=== PATIENT | male | born 1970 | race Caucasian/White ===

== ENCOUNTER 2016-11-10 18:55 | Emergency (ER) ==
[2016-11-10 19:27] VITALS: BP 147/92
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
--- NOTE | 2016-11-11 09:37 | Diag Imaging Result Document ---
PROCEDURE NAME: ANKLE COMPLETE RIGHT - 11/10/2016 PLAIN RADIOGRAPH OF THE RIGHT ANKLE, THREE VIEWS: COMPARISON: None available. FINDINGS: There is no discrete fracture, dislocation, or intrinsic osseous lesion. The visualized joint spaces are essentially unremarkable. The surrounding soft tissues are grossly unremarkable. IMPRESSION: No evidence of acute osseous abnormality.
--- NOTE | 2016-11-11 09:56 | Diag Imaging Result Document ---
PROCEDURE NAME: LOWER LEG-RIGHT - 11/10/2016 PLAIN RADIOGRAPH OF THE RIGHT LOWER LEG, 4 VIEWS: COMPARISON: None available. FINDINGS: There is no discrete fracture, dislocation, or intrinsic osseous lesion. The visualized joint spaces are essentially unremarkable. The surrounding soft tissues are grossly unremarkable. IMPRESSION: No evidence of acute osseous abnormality.
--- NOTE | 2016-11-11 09:59 | Diag Imaging Result Document ---
PROCEDURE NAME: FOOT COMPLETE RIGHT - 11/10/2016 PLAIN RADIOGRAPH OF THE RIGHT FOOT, 3 VIEWS: COMPARISON: None available. FINDINGS: There is no discrete fracture, dislocation, or intrinsic osseous lesion. The visualized joint spaces are essentially unremarkable. The surrounding soft tissues are grossly unremarkable. IMPRESSION: No evidence of acute osseous abnormality.
== END 2016-11-10 21:36 | disposition home or self-care (01) ==
LOC: ED 18:55
DX: S93.401A Sprain of unspecified ligament of right ankle, initial encounter (principal); S99.921A Unspecified injury of right foot, initial encounter; M79.604 Pain in right leg; V86.5 Driver of special all-terrain or other off-road motor vehicle injured in nontraffic accident; M25.571 Pain in right ankle and joints of right foot; F17.210 Nicotine dependence, cigarettes, uncomplicated